=== PATIENT | female | born 1995 | race Caucasian/White ===

== ENCOUNTER 2017-04-30 02:21 | Emergency (ER) | payer OTHER, MEDICAID ==
[2017-04-30] MEDS ORDERED: ONDANSETRON 4 MG INJ IV (03:25)
[2017-04-30] MEDS ORDERED: morphine 4 MG/ML VIAL IV (03:25)
[2017-04-30] MEDS: SOD CHLORIDE 0.9% 1,000 ML IV (04:00)
[2017-04-30 04:22] LABS: ADD MAN DIFF? NO
[2017-04-30 04:23] LABS: WHITE BLOOD COUNT 10.9 10^3/ul (4.8-10.8)
[2017-04-30 04:23] LABS: BASOPHILS % 0.2 % (0.0-2.0); EOSINOPHILS % 0.2 % (0.0-7.0); HEMOGLOBIN 15.8 g/dl (12.0-16.0); LYMPHOCYTES # 1.2 10^3/ul (0.8-2.9); LYMPHOCYTES % 11.4 % (15.0-51.0); MEAN CORPUSCULAR HEMOGLOBIN 30.9 pg (29.0-33.0); MEAN CORPUSCULAR HGB CONC 35.1 g/dl (32.0-37.0); MEAN CORPUSCULAR VOLUME 87.9 fl (82.0-101.0); MEAN PLATELET VOLUME 10.3 fl (7.4-10.4); MONOCYTE # 0.7 10^3/ul (0.3-0.9); MONOCYTES % 6.2 % (0.0-11.0); NEUTROPHIL # 8.9 10^3/ul (1.6-7.5); NEUTROPHILS % 81.5 % (39.0-77.0); PLATELET COUNT 259 10^3/UL (140-415); RED BLOOD COUNT 5.12 10^6/ul (4.20-5.40); RED CELL DISTRIBUTION WIDTH 11.9 % (11.5-14.5)
[2017-04-30 04:40] LABS: ANION GAP 20 (8-16); BLOOD UREA NITROGEN 9 mg/dl (7-20); CALCIUM 9.7 mg/dl (8.4-10.2); CARBON DIOXIDE 25 mmol/L (21-31); CHLORIDE 105 mmol/L (97-110); CREATININE 0.73 mg/dl (0.44-1.00); GLUCOSE 104 mg/dl (70-220); POTASSIUM 3.4 mmol/L (3.5-5.1); SODIUM 147 mmol/L (135-144)
== END 2017-04-30 05:47 | disposition home or self-care (01) ==
LOC: E/R 02:21
DX: R55 Syncope and collapse (principal); E87.6 Hypokalemia
CPT/HCPCS: 36415; 71010; 80048; 82962; 85025; 93005; 99285-25

== ENCOUNTER 2018-08-26 13:11 | Inpatient (IN) | payer OTHER ==
[2018-08-26 14:25] LABS: ADD MAN DIFF? NO
[2018-08-26 14:26] LABS: WHITE BLOOD COUNT 8.8 10^3/ul (4.8-10.8)
[2018-08-26 14:26] LABS: BASOPHILS % 0.2 % (0.0-2.0); EOSINOPHILS # 0.1 10^3/ul (0.0-0.5); EOSINOPHILS % 0.6 % (0.0-7.0); HEMATOCRIT 38.9 % (37.0-47.0); HEMOGLOBIN 13.1 g/dl (12.0-16.0); LYMPHOCYTES # 1.8 10^3/ul (0.8-2.9); LYMPHOCYTES % 20.3 % (15.0-51.0); MEAN CORPUSCULAR HEMOGLOBIN 31.1 pg (29.0-33.0); MEAN CORPUSCULAR HGB CONC 33.7 g/dl (32.0-37.0); MEAN CORPUSCULAR VOLUME 92.4 fl (82.0-101.0); MEAN PLATELET VOLUME 10.1 fl (7.4-10.4); MONOCYTES % 11.9 % (0.0-11.0); NEUTROPHIL # 5.9 10^3/ul (1.6-7.5); NEUTROPHILS % 66.7 % (39.0-77.0); PLATELET COUNT 211 10^3/UL (140-415); RED BLOOD COUNT 4.21 10^6/ul (4.20-5.40); RED CELL DISTRIBUTION WIDTH 12.3 % (11.5-14.5)
[2018-08-26] MEDS: SOD CHLORIDE 0.9% 500 ML IV (14:26)
[2018-08-26] MEDS: ONDANSETRON 4 MG INJ IV (14:26)
[2018-08-26] MEDS: morphine 4 MG/ML VIAL IV (14:26)
[2018-08-26 14:46] LABS: ALANINE AMINOTRANSFERASE 25 IU/L (13-69); ALBUMIN 4.2 g/dl (3.3-4.9); ALKALINE PHOSPHATASE 73 IU/L (42-121); ANION GAP 8 (5-13); ASPARTATE AMINO TRANSFERASE 31 IU/L (15-46); BILIRUBIN,INDIRECT 0.9 mg/dl (0-1.1); BILIRUBIN,TOTAL 0.9 mg/dl (0.2-1.3); BLOOD UREA NITROGEN 10 mg/dl (7-20); CALCIUM 9.2 mg/dl (8.4-10.2); CARBON DIOXIDE 28 mmol/L (21-31); CHLORIDE 104 mmol/L (97-110); CREATININE 0.57 mg/dl (0.44-1.00); Estimated GFR > 60 mL/min (>60); GLUCOSE 83 mg/dl (70-220); LIPASE 39 U/L (23-300); POTASSIUM 3.6 mmol/L (3.5-5.1); SODIUM 140 mmol/L (135-144)
[2018-08-26 14:57] LABS: ADD UMIC YES; UR ASCORBIC ACID NEGATIVE (NEGATIVE); UR BACTERIA FEW /HPF (NONE SEEN); UR BILIRUBIN (Dip) NEGATIVE (NEGATIVE); UR BLOOD (Dip) 2+ mg/dL (NEGATIVE); UR CLARITY SLIGHTLY CLOUDY (CLEAR); UR COLOR AMBER (YELLOW); UR GLUCOSE (Dip) NEGATIVE (NEGATIVE); UR KETONES (Dip) NEGATIVE (NEGATIVE); UR LEUKOCYTE ESTERASE (Dip) TRACE Leu/ul (NEGATIVE); UR MUCUS MODERATE /HPF (NONE SEEN); UR NITRITE (Dip) NEGATIVE (NEGATIVE); UR RBC 82 /HPF (0-5); UR SPECIFIC GRAVITY (Dip) 1.026 (1.003-1.030); UR SQUAMOUS EPITHELIAL CELL FEW /HPF (FEW); UR TOTAL PROTEIN (Dip) 2+ mg/dl (NEGATIVE); UR UROBILINOGEN (Dip) NEGATIVE (NEGATIVE); UR WBC 24 /HPF (0-5)
[2018-08-26] MEDS: PIPER-TAZO 3.375 GM IV (PMX) 100 ML IVPB ×2 (17:42→23:57)
[2018-08-26] MEDS ORDERED: ONDANSETRON 4 MG INJ IV ×2 (18:30→19:00)
[2018-08-26] MEDS ORDERED: ZOLPIDEM 5 MG TAB PO (19:00)
[2018-08-26] MEDS ORDERED: HYDROCODONE/APAP (5/325) TAB PO (19:00)
[2018-08-26] MEDS ORDERED: NACL 0.9% 3 ML SYG IV (19:00)
[2018-08-26] MEDS ORDERED: ACETAMINOPHEN 325 MG TAB PO (19:00)
[2018-08-26] MEDS ORDERED: DOCUSATE SODIUM 100 MG CAP PO (19:00)
[2018-08-26] MEDS: morphine 2 MG INJ IV (20:20)
[2018-08-26] MEDS: NS + KCL 20 MEQ 1,000 ML IV (21:24)
[2018-08-27] MEDS: PIPER-TAZO 3.375 GM IV (PMX) 100 ML IVPB (05:14)
[2018-08-27 05:49] LABS: ADD MAN DIFF? NO
[2018-08-27 05:56] LABS: WHITE BLOOD COUNT 6.1 10^3/ul (4.8-10.8)
[2018-08-27 05:56] LABS: BASOPHILS % 0.3 % (0.0-2.0); EOSINOPHILS # 0.1 10^3/ul (0.0-0.5); EOSINOPHILS % 1.2 % (0.0-7.0); LYMPHOCYTES # 2.1 10^3/ul (0.8-2.9); LYMPHOCYTES % 34.4 % (15.0-51.0); MEAN CORPUSCULAR HEMOGLOBIN 31.4 pg (29.0-33.0); MEAN CORPUSCULAR HGB CONC 33.3 g/dl (32.0-37.0); MEAN CORPUSCULAR VOLUME 94.2 fl (82.0-101.0); MEAN PLATELET VOLUME 10.8 fl (7.4-10.4); MONOCYTE # 0.9 10^3/ul (0.3-0.9); MONOCYTES % 14.5 % (0.0-11.0); NEUTROPHILS % 49.3 % (39.0-77.0); PLATELET COUNT 198 10^3/UL (140-415); RED BLOOD COUNT 3.82 10^6/ul (4.20-5.40); RED CELL DISTRIBUTION WIDTH 12.3 % (11.5-14.5)
[2018-08-27] MEDS: NS + KCL 20 MEQ 1,000 ML IV ×2 (06:00→12:56)
[2018-08-27 06:14] LABS: ANION GAP 6 (5-13); BLOOD UREA NITROGEN 8 mg/dl (7-20); CALCIUM 8.5 mg/dl (8.4-10.2); CARBON DIOXIDE 27 mmol/L (21-31); CHLORIDE 110 mmol/L (97-110); CREATININE 0.68 mg/dl (0.44-1.00); Estimated GFR > 60 mL/min (>60); GLUCOSE 80 mg/dl (70-220); MAGNESIUM 2.2 mg/dl (1.7-2.5); PHOSPHORUS 4.4 mg/dl (2.5-4.9); POTASSIUM 4.1 mmol/L (3.5-5.1); SODIUM 143 mmol/L (135-144)
[2018-08-27] MEDS ORDERED: PROPOFOL 20 ML (09:43)
[2018-08-27] MEDS ORDERED: MIDAZOLAM 1 MG/ML 2 ML INJ (09:43)
[2018-08-27] MEDS ORDERED: CEFAZOLIN 1 GM INJ (09:43)
[2018-08-27] MEDS ORDERED: ROCURONIUM 50 MG INJ (09:43)
[2018-08-27] MEDS ORDERED: ROPIVACAINE 0.2% 20 ML VIAL (09:43)
[2018-08-27] MEDS ORDERED: FENTAnyl 50 MCG/ML VIAL (09:43)
[2018-08-27] MEDS ORDERED: METOCLOPRAMIDE 10 MG INJ IV (10:00)
[2018-08-27] MEDS ORDERED: MEPERIDINE 25 MG INJ IV (10:00)
[2018-08-27] MEDS ORDERED: HYDROmorphONE 1 MG/5 ML IV SYRINGE IV ×2 (10:00)
[2018-08-27] MEDS ORDERED: FENTAnyl 50 MCG/ML VIAL IV ×3 (10:00)
[2018-08-27] MEDS ORDERED: EPHEDrine SULFATE 50 MG/5 ML SYG IV (10:00)
[2018-08-27] MEDS: BUPIVACAINE 0.25%/EPI (SDV) 30 ML INJ (10:31)
[2018-08-27] MEDS ORDERED: SUGAMMADEX SODIUM 200 MG/2 ML VIAL IV (10:40)
[2018-08-27] MEDS ORDERED: ONDANSETRON 4 MG INJ (10:40)
[2018-08-27] MEDS ORDERED: METOCLOPRAMIDE 10 MG INJ (10:40)
[2018-08-27] MEDS ORDERED: KETOROLAC 30 MG INJ (10:40)
[2018-08-27] MEDS ORDERED: DEXAMETHASONE 4 MG/ML 5 ML INJ (10:40)
[2018-08-27] MEDS ORDERED: ONDANSETRON 4 MG INJ IV (11:00)
[2018-08-27] MEDS ORDERED: morphine 2 MG INJ IV (11:00)
[2018-08-27] MEDS: ONDANSETRON 4 MG INJ IV (11:21)
[2018-08-27] MEDS: HYDROmorphONE 1 MG/5 ML IV SYRINGE IV (11:21)
[2018-08-27] MEDS: CEFTRIAXONE 1 GM/50 ML (PMX) 50 ML IVPB (12:56)
[2018-08-27] MEDS: OXYCODONE/ACETAMINOPHEN (5/325) TAB PO ×2 (13:53→19:40)
[2018-08-27] MEDS: morphine 2 MG INJ IV (22:36)
[2018-08-28] MEDS: OXYCODONE/ACETAMINOPHEN (5/325) TAB PO ×3 (00:38→12:39)
[2018-08-28] MEDS: NS + KCL 20 MEQ 1,000 ML IV ×2 (02:00→12:00)
[2018-08-28 08:27] LABS: ADD MAN DIFF? NO
[2018-08-28 08:38] LABS: BASOPHILS % 0.1 % (0.0-2.0); EOSINOPHILS % 0.1 % (0.0-7.0); HEMATOCRIT 35.9 % (37.0-47.0); HEMOGLOBIN 12.2 g/dl (12.0-16.0); LYMPHOCYTES % 14.3 % (15.0-51.0); MEAN CORPUSCULAR VOLUME 91.1 fl (82.0-101.0); MEAN PLATELET VOLUME 11.2 fl (7.4-10.4); MONOCYTE # 1.1 10^3/ul (0.3-0.9); MONOCYTES % 7.8 % (0.0-11.0); NEUTROPHILS % 77.1 % (39.0-77.0); PLATELET COUNT 216 10^3/UL (140-415); RED BLOOD COUNT 3.94 10^6/ul (4.20-5.40); RED CELL DISTRIBUTION WIDTH 11.9 % (11.5-14.5)
[2018-08-28 08:38] LABS: WHITE BLOOD COUNT 14.2 10^3/ul (4.8-10.8)
[2018-08-28] MEDS: CEFTRIAXONE 1 GM/50 ML (PMX) 50 ML IVPB (12:10)
== END 2018-08-28 13:05 | disposition home or self-care (01) | DRG 342 ==
LOC: FTE 13:11 → MS1 18:24
PROC: 0DTJ4ZZ Resection of Appendix, Percutaneous Endoscopic Approach (ICD-10-PCS; principal; 2018-08-27 10:00)
DX: K35.80 Unspecified acute appendicitis (principal); N39.0 Urinary tract infection, site not specified
CPT/HCPCS: 36415; 74176; 80048; 80053; 81001; 83690; 83735; 84100; 84703; 85025; 88304; 96361; 96365; 96375; 99285-25